=== PATIENT | male | born 1995 | race Caucasian/White ===

== ENCOUNTER 2017-06-13 18:52 | Emergency (ER) | payer OTHER ==
[2017-06-13 19:11] VITALS: BP 146/76
--- NOTE | 2017-06-13 19:37 | UC ---
[facility] HPI - HPI Summary HPI Summary: c/o painful oral lesion x days under tongue no tooth ache At [facility] for drug abuse - History of Current Complaint Chief Complaint: UCDentalProblem Stated Complaint: DENTAL ABSCESS Time Seen by Provider: 06/13/17 19:34 Hx Obtained From: Patient Onset/Duration: Gradual Onset, Lasting Days Severity: Moderate Pain Intensity: 4 Pain Scale Used: 0-10 Numeric Aggravating Factor(s): Other - eating/chewing Alleviating Factor(s): Nothing Related History: Swelling - Allergies/Home Medications Allergies/Adverse Reactions: Allergies Allergy/AdvReac Type Severity Reaction Status Date / Time No Known Allergies Allergy Unverified 06/13/17 19:11 PMH/Surg Hx/FS Hx/Imm Hx Previously Healthy: Yes Other History Of: Negative For: HIV, Hepatitis B, Hepatitis C, Anticoagulant Therapy - Surgical History Surgical History: None - Family History Known Family History: Positive: Hypertension, Other - Lung CA - Social History Alcohol Use: None Substance Use Type: None Smoking Status (MU): Former Smoker Amount Used/How Often: 1 ppd - Immunization History Most Recent Influenza Vaccination: nasal flu Review of Systems Constitutional: Negative Skin: Negative Eyes: Negative ENT: Negative Respiratory: Negative Cardiovascular: Negative Gastrointestinal: Negative Genitourinary: Negative Motor: Negative Neurovascular: Negative Musculoskeletal: Negative Neurological: Negative Psychological: Negative Is Patient Immunocompromised?: No All Other Systems Reviewed And Are Negative: Yes Physical Exam Triage Information Reviewed: Yes Appearance: Well-Appearing, No Pain Distress, Well-Nourished Vital Signs: Initial Vital Signs Temp 98.4 F 06/13/17 19:07 Pulse 92 06/13/17 19:07 Resp 18 06/13/17 19:07 BP 146/76 06/13/17 19:07 Pulse Ox 100 06/13/17 19:07 Vital Signs Reviewed: Yes Eyes: Positive: Conjunctiva Clear ENT: Positive: Normal ENT inspection Dental Exam: Normal Neck: Positive: Supple, Nontender, No Lymphadenopathy Respiratory: Positive: Lungs clear, Normal breath sounds, No respiratory distress Cardiovascular: Positive: RRR, No Murmur Abdomen Description: Positive: Nontender Musculoskeletal: Positive: ROM Intact, No Edema Neurological: Positive: Alert Psychological Exam: Normal Dental Complaint Course/Dx - Course Course Of Treatment: Reference #: [id number] I-Stop - Differential Dx/Diagnosis Provider Diagnoses: ORAL ULCERATION Discharge - Discharge Plan Condition: Stable Disposition: HOME Prescriptions: Triamcinolone DENTAL PASTE(NF) 1 applic MT TID #1 tube Referrals: No Primary Care Phys,NOPCP [Primary Care Provider] - Additional Instructions: use oral paste 3x day until cleared as discussed recheck for new or worsening symptoms recheck Saturday if not better Images Dental: 1 - oral ucler under tongue
== END 2017-06-13 20:15 | disposition home or self-care (01) ==
LOC: UCEAST 18:52
DX: K12.1 Other forms of stomatitis (principal); Z87.891 Personal history of nicotine dependence
CPT/HCPCS: 99212; G0463

== ENCOUNTER 2017-08-29 11:23 | Emergency (ER) | payer OTHER ==
--- NOTE | 2017-08-29 12:45 | RAD ---
HISTORY: Right rib pain, trauma COMPARISONS: None VIEWS: 8, Frontal view of the chest with frontal and oblique views of the right hemithorax. FINDINGS: There is no displaced rib fracture or pneumothorax. The visualized lungs are clear. IMPRESSION: NO DISPLACED RIB FRACTURE OR PNEUMOTHORAX
--- NOTE | 2017-08-29 14:14 | UC ---
Truncal Trauma HPI - HPI Summary HPI Summary: 21 yo WM c/o right sided rib/chestwall pain after falling while snowboarding and hit his rib with his right elbow yesterday - History Of Current Complaint Chief Complaint: UCTrauma Stated Complaint: PAIN IN RIB AREA Time Seen by Provider: 08/29/17 13:17 Hx Obtained From: Patient Onset/Duration: Sudden Onset Severity Initially: Moderate Pain Intensity: 9 Mechanism Of Injury: Blunt Trauma, Direct Blow - Allergies/Home Medications Allergies/Adverse Reactions: Allergies Allergy/AdvReac Type Severity Reaction Status Date / Time No Known Allergies Allergy Unverified 08/29/17 12:00 PMH/Surg Hx/FS Hx/Imm Hx - Additional Past Medical History Additional PMH: none Previously Healthy: No Other History Of: Negative For: HIV, Hepatitis B, Hepatitis C, Anticoagulant Therapy - Surgical History Surgical History: None - Family History Known Family History: Positive: Hypertension, Other - Lung CA - Social History Alcohol Use: None Substance Use Type: None Smoking Status (MU): Light Every Day Tobacco Smoker Amount Used/How Often: 1 ppd - Immunization History Most Recent Influenza Vaccination: nasal flu Review of Systems Constitutional: Negative Skin: Negative Eyes: Negative ENT: Negative Respiratory: Negative Cardiovascular: Negative Gastrointestinal: Negative Genitourinary: Negative Motor: Negative Neurovascular: Negative Musculoskeletal: Other: - see HPI Neurological: Negative Psychological: Negative All Other Systems Reviewed And Are Negative: Yes Physical Exam Triage Information Reviewed: Yes Appearance: Well-Appearing Vital Signs: Initial Vital Signs Temp 37.2 C 08/29/17 11:54 Pulse 94 08/29/17 11:54 Resp 16 08/29/17 11:54 BP 117/77 08/29/17 11:54 Pulse Ox 99 08/29/17 11:54 Eye Exam: Normal ENT Exam: Normal Dental Exam: Normal Neck exam: Normal Neck: Positive: 1 Respiratory Exam: Normal Cardiovascular Exam: Normal Abdominal Exam: Normal Musculoskeletal: Positive: Other: - TTP on right lateral T4-5 region below nipple no crepitus or stepoff palpated Neurological Exam: Normal Psychological Exam: Normal Skin Exam: Normal Truncal Trauma Course/Dx - Course Course Of Treatment: XR of right ribs- Neg for fx - Differential Dx/Diagnosis Provider Diagnoses: Rib contusion Discharge - Discharge Plan Condition: Stable Disposition: HOME Patient Education Materials: Rib Contusion (ED) Referrals: No Primary Care Phys,NOPCP [Primary Care Provider] - Additional Instructions: NO heavy lifting, Manual splinting when coughing and laughing
[2017-08-29 14:15] VITALS: BP 128/74
== END 2017-08-29 14:15 | disposition home or self-care (01) ==
LOC: UCEAST 11:23
DX: S20.20XA Contusion of thorax, unspecified, initial encounter (principal); W00.0XXA Fall on same level due to ice and snow, initial encounter; Y93.23 Activity, snow (alpine) (downhill) skiing, snowboarding, sledding, tobogganing and snow tubing; Y92.9 Unspecified place or not applicable
CPT/HCPCS: 99211; G0463

== ENCOUNTER 2019-09-10 18:26 | Emergency (ER) | payer SELFPAY ==
[2019-09-10 18:42] VITALS: BP 150/86
--- NOTE | 2019-09-10 20:12 | UC ---
Eye Complaint HPI - HPI Summary HPI Summary: 23yo male presenting with eye redness, irritation, and discharge that began this afternoon and worsened at work. Patient states he was sent home from work to get treatment for pink eye. Denies vision changes. States "it feels like there is a ball of pus in my eye. Denies pain with eye movement. Denies contact lens use. Patient works at a hotel. - History of Current Complaint Chief Complaint: UCEye Stated Complaint: R EYE COMPLAINT Hx Obtained From: Patient Pain Intensity: 8 Pain Scale Used: 0-10 Numeric - Allergies/Home Medications Allergies/Adverse Reactions: Allergies Allergy/AdvReac Type Severity Reaction Status Date / Time No Known Allergies Allergy Verified 09/10/19 18:43 Home Medications: Home Medications Polymyx/Trimethoprim OPTH* [Polytrim OPHTH*] 3 drop RIGHT EYE TID 7 Days #1 btl 09/10/19 [Rx] PMH/Surg Hx/FS Hx/Imm Hx Previously Healthy: Yes Other History Of: Negative For: HIV, Hepatitis B, Hepatitis C, Anticoagulant Therapy - Surgical History Surgical History: None - Family History Known Family History: Positive: Hypertension, Other - Lung CA - Social History Alcohol Use: None Substance Use Type: None Smoking Status (MU): Light Every Day Tobacco Smoker Amount Used/How Often: 1 ppd - Immunization History Most Recent Influenza Vaccination: nasal flu Review of Systems All Other Systems Reviewed And Are Negative: Yes Constitutional: Positive: Negative Eyes: Positive: Drainage - right, Eye Redness - right. Negative: Blurred Vision , Photophobia ENT: Positive: Negative Respiratory: Positive: Negative Cardiovascular: Positive: Negative Neurological/Mental Status: Positive: Negative Physical Exam - Summary Physical Exam Summary: Vital Signs Reviewed: Yes A+Ox3, no distress Eyes: right conjunctiva inflamed with copious amount of purulent discharge, CHIARA. EOM intact and full, no pain with eye movement ENT: Hearing grossly normal Neck: Positive: Supple Respiratory: Positive: No respiratory distress, No accessory muscle use Cardiovascular: skin reflects adequate perfusion Musculoskeletal Exam: [place] x 4 without difficulty Neurological: Positive: Alert Psychological: Positive: age appropriate behavior Skin: Positive: no rash, no ecchymosis Vital Signs: Initial Vital Signs Temp 98.6 F 09/10/19 18:37 Pulse 100 09/10/19 18:37 Resp 16 09/10/19 18:37 BP 150/86 02/27/20 18:37 Pulse Ox 100 09/10/19 18:37 Eye Complaint Course/Dx - Course Course Of Treatment: Discussed bacterial conjunctivitis with patient and treated with polytrim drops. Instructed to refrain from rubbing the eye and to wash hands often as it is very contagious. Informed him that he can use the drops in the other eye if it begins to be symptomatic. Instructed to follow up with [facility] if symptoms not improving with treatment. Patient voiced understanding and agreed with treatment plan. - Differential Dx/Diagnosis Provider Diagnosis: Bacterial conjunctivitis of right eye Discharge ED - Sign-Out/Discharge Documenting (check all that apply): Patient Departure All imaging exams completed and their final reports reviewed: No Studies - Discharge Plan Condition: Stable Disposition: HOME Prescriptions: Polymyx/Trimethoprim OPTH* [Polytrim OPHTH*] 3 drop RIGHT EYE TID 7 Days #1 btl Patient Education Materials: Conjunctivitis (ED) Forms: *Work Release Referrals: [facility] [Outside] Additional Instructions: Use the antibiotic eye drops as prescribed. Refrain from touching or rubbing the eye. Wash your hands often. Return or follow up with the [facility] clinic listed below if symptoms worsen or do not resolve within 7 days. - Billing Disposition and Condition Condition: STABLE Disposition: Home - Attestation Statements Provider Attestation: Per institutional requirements, I have reviewed the chart, however, I was not consulted specifically or made aware of this patient by the midlevel provider. I did not personally evaluate, interact with, or disposition this patient. EK
== END 2019-09-10 19:43 | disposition home or self-care (01) ==
LOC: UCCORT 18:26
DX: H10.89 Other conjunctivitis (principal); F17.210 Nicotine dependence, cigarettes, uncomplicated
CPT/HCPCS: 99212; G0463